=== PATIENT | female | born 1995 | race Caucasian/White ===

== ENCOUNTER 2021-03-17 14:12 | Emergency (ER) | payer OTHER ==
[2021-03-17 15:46] LABS: Urine Blood Negative (Negative); Urine Glucose Negative (Negative); Urine Protein Negative (Negative); Urine Specific Gravity 1.025 (1.005-1.030)
[2021-03-17 15:50] LABS: Basophils % 0.5 % (0-1.3); Hematocrit 39.6 % (36.0-45.0); Lymphocytes % 29.5 % (15.3-44.8); RBC Red Blood Cell Count 4.67 M/uL (3.86-4.86)
[2021-03-17 15:54] LABS: Protime INR 1.07
[2021-03-17 15:54] LABS: Urine Specific Gravity/Preg 1.025 (1.005-1.030)
[2021-03-17 16:08] LABS: Barbiturates NEGATIVE (NEGATIVE); Benzodiazepines NEGATIVE (NEGATIVE); Cocaine NEGATIVE (NEGATIVE); METHAMPHETAM NEGATIVE (NEGATIVE); Methadone NEGATIVE (NEGATIVE); Opiates NEGATIVE (NEGATIVE); Phencyclidine NEGATIVE (NEGATIVE); THC Cannibis NEGATIVE (NEGATIVE)
[2021-03-17 16:25] LABS: ALT/SGPT 25 U/L (12-78); AST/SGOT 16 U/L (15-37); Albumin 3.8 g/dL (3.4-5.0); Alkaline Phosphatase 99 U/L (45-117); BUN Blood Urea Nitrogen 11 mg/dL (7-18); Bicarbonate 26 mmol/L (21-32); Bilirubin Direct 0.3 mg/dL (0-0.2); Bilirubin Total 1.4 mg/dL (0.2-1.0); Glucose Level 79 mg/dL (74-106); Potassium 3.7 mmol/L (3.5-5.1); Protein, Total 8.4 g/dL (6.4-8.2); Sodium Level 138 mmol/L (136-145)
--- NOTE | 2021-03-17 17:43 | ER ---
Nurse's Notes [facility] Name: Beatriz Michel Age: 25 yrs Sex: Female : 1995 Arrival Date: 03/17/2021 Time: 14:15 Bed 19 Private MD: Diagnosis: Homicidal and suicidal ideations Presentation: 03/17 14:52 Chief complaint: Patient states: "I need to get resources for post depression. vg1 I've been having suicidal thoughts and thoughts of hurting the baby. My doctor, Dr. Monroe, suggested I come to the ER. I havnt acted on any suicidal thoughts or actually hurt the baby though." Pt denies having plan of SI or of hurting child. Coronavirus screen: Vaccine status: Patient reports receiving the 2nd dose of the covid vaccine. Client denies travel out of the [place] in the last 14 days. Ebola Screen: Patient negative for fever greater than or equal to 101.5 degrees Fahrenheit, and additional compatible Ebola Virus Disease symptoms. Initial Sepsis Screen: Does the patient meet any 2 criteria? No. Patient's initial sepsis screen is negative. Does the patient have a suspected source of infection? No. Patient's initial sepsis screen is negative. Risk Assessment: Do you want to hurt yourself or someone else? Patient reports desire/thoughts of hurting themselves or someone else. Provider notified. Onset of symptoms was February 2021. 14:52 Method Of Arrival: Ambulatory vg1 14:52 Acuity: GERARD 2 vg1 Triage Assessment: 14:56 General: Appears in no apparent distress. comfortable, Behavior is calm, cooperative. vg1 Pain: Denies pain. Neuro: Level of Consciousness is awake, alert, obeys commands, Oriented to person, place, time, situation. 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 - Social history:: Smoking status: Patient denies any tobacco usage or history of. Patient/guardian denies using alcohol, street drugs. Screenin:00 Abuse screen: Denies threats or abuse. Nutritional screening: No deficits noted. 2 Tuberculosis screening: No symptoms or risk factors identified. Fall Risk None identified. No fall in past 12 months (0 pts). No secondary diagnosis (0 pts). No IV (0 pts). Ambulatory Aid- None/Bed Rest/Nurse Assist (0 pts). Gait- Normal/Bed Rest/Wheelchair (0 pts) Mental Status- Oriented to own ability (0 pts). Total Holland Fall Scale indicates No Risk (0-24 pts). Assessment: 15:00 Reassessment: Patient belongings sent to security for safe keeping - Belongings check sl2 list placed on chart. General: Appears in no apparent distress. comfortable, well groomed, well developed, Behavior is calm, cooperative. 15:00 Pain: Denies pain. Neuro: No deficits noted. Level of Consciousness is awake, alert, sl2 obeys commands, Oriented to person, place, time, situation, Appropriate for age Radiology Scheduler are equal bilaterally Moves all extremities. Full function Gait is steady, Speech is normal, Facial symmetry appears normal. Cardiovascular: No deficits noted. Respiratory: No deficits noted. GI: No deficits noted. : No deficits noted. EENT: No deficits noted. Derm: No deficits noted. Derm: No deficits noted. 17:01 Reassessment: Arlet - [facility] Assembler Bicycle currently speaking with patient sl2 via Face time on I-pad for completion of psychiatric evaluation. Patient pleasant and cooperative and answering questions appropriately. 17:29 Reassessment: Psychiatric assessment of patient via I-pad Face Time, conducted by 2 Lashae Ross from [facility] has been completed. Lashae is currently speaking with JOHNNY Howell regarding findings and disposition. 18:35 Reassessment: Patient states she is breast feeding - and requesting a breast pump - [facility] labor and delivery department called and states they will sent a breast pump to the ER on loan to assist patient with breast feeding. 19:30 Reassessment: Change of shift nursing report given to FERMIN Barron. [facility] 19:45 Reassessment: Patient appears in no apparent distress at this time. Sitting on cc4 stretcher \\T\\ voices no complaints; VSS; voices no complaints;. General: Appears in no apparent distress. Behavior is calm, cooperative. Pain: Denies pain. Neuro: No deficits noted. Level of Consciousness is awake, alert, obeys commands, Oriented to person, place, time, situation. Respiratory: No deficits noted. Airway is patent Respiratory effort is even, unlabored. Musculoskeletal: No deficits noted. Capillary refill < 3 seconds, Range of motion: intact in all extremities. 22:00 Reassessment: Patient appears in no apparent distress at this time. Using breast pump cc4 with supervision by sitter; voices no complaints. 03/18 00:00 Reassessment: Patient appears in no apparent distress at this time. Dozing cc4 intermittently. 01:52 Reassessment: Patient appears in no apparent distress at this time. Reports discomfort cc4 of right AC saline lock with C. JENNA Barrett notified with okay to remove saline lock \\T\\ dc'd, annabelle. well; [facility] telephoned with nurse to nurse interview completed;. 02:15 Reassessment: Patient appears in no apparent distress at this time. [facility] cc4 telephoned with acceptance for admission with transfer paperwork being prepared; awake/alert/oriented/calm/cooperative; voices no complaints; pumping breast milk per self with supervision. 03:35 Reassessment: [facility] arrived \\T\\ transferring pt to [facility] via cc4 ground ambulance with patients belongings retrieved from security; NAD. Psych: 03/17 15:00 Cooks Suicide Severity Screening: "In the past month, have you actually had any sl2 thoughts of killing yourself?". Cooks Suicide Severity Screening: In the past month, have you wished you were or wished you could go to sleep and not wake up? Patient responds "No." "In the past month, have you actually had any thoughts of killing yourself?" Patient responds "yes." "In your lifetime, have you ever done anything, started to do anything, or prepared to do anything to end your life?" Patient responds "no.". 15:00 Subjective: Having thoughts of homicide. Denies plan. Homicidal thoughts directed sl2 towards Directed towards her self and her baby - states she has fleeting thoughts of hanging or shooting herself and fleeting thoughts of dropping or drowning her baby - but does not want to do these things so she is seeking help. Objective: Patient is cooperative, Speech is normal, Affect is appropriate, Patient has mutilated themselves by None - no evidence of self mutilation noted - patient denies. Interventions: Removed personal items and placed in bag. Patient placed in hospital gown. Searched person for dangerous items. Urine collected and sent for urine drug test. Belonging list filled out. Safety Checks: Personal items have been removed. Door is open. No visitors are present at this time. Pt denies substance abuse. Commitment: Patient will be a voluntary commitment. Vital Signs: 14:52 BP 120 / 92; Pulse 94; Resp 16; Temp 97.9; Pulse Ox 99% ; Weight 80.29 kg; Height 5 ft. vg1 3 in. (160.02 cm); Pain 0/10; 17:00 BP 122 / 78; Pulse 88; Resp 18; Temp 98.0; Pulse Ox 99% on R/A; sl2 19:45 BP 126 / 83; Pulse 101; Resp 18; Temp 98.4; Pulse Ox 96% on R/A; cc4 03/18 03:15 BP 125 / 76; Pulse 100; Resp 20; Temp 97.8; Pulse Ox 96% on R/A; cc4 03/17 14:52 Body Mass Index 31.35 (80.29 kg, 160.02 cm) vg1 ED Course: 03/17 14:15 Patient arrived in ED. mr 14:56 Triage completed. vg1 14:56 Arm band placed on. vg1 15:00 Patient has correct armband on for positive identification. Placed in gown. Bed in low sl2 position. Security at bedside. 15:00 No provider procedures requiring assistance completed. sl2 15:16 Ramana Barrett PA is PHCP. cp 15:16 Maggie Arroyo MD is Attending Physician. cp 15:19 Sheila Weldon, FERMIN is Primary Nurse. sl2 15:49 Inserted saline lock: 20 gauge in right antecubital area, using aseptic technique. dh4 Blood collected. 16:36 contacted [facility] to have screener evaluate pt. bd 17:47 faxed chart to [facility]. bd 19:22 IV is patent, is intact, with fluids infusing freely, with fluids not infusing freely. sl2 03/18 00:33 Faxed pt chart to [facility] and [address] in regards to initiating transfer. 03:35 Patient did not have IV access during this emergency room visit. cc4 Administered Medications: No medications were administered Outcome: 03/17 17:43 ER care complete, transfer ordered by MD. carvalho 03/18 03:35 Transferred by ground EMS Note: [facility] Condition: stable Instructed on the need for transfer, Demonstrated understanding of instructions. 03:38 Patient left the ED. cc4 Signatures: Karen Mc Mary mr Page, Ramana, PA PA Rocco Donald 4 Jessica Abdullahi, RN RN vg1 Junior Ferris 3 Jael Damon, RN RN cc4 Sheila Weldon RN RN sl2
--- NOTE | 2021-03-17 17:43 | EDPHYS ---
Physician Documentation [facility] Name: Beatriz Michel Age: 25 yrs Sex: Female : 1995 Arrival Date: 03/17/2021 Time: 14:15 Bed 19 Private MD: ED Physician Maggie Arroyo HPI: 03/17 15:35 This 25 yrs old Female presents to ER via Ambulatory with complaints of cp Depression. 15:35 The patient presents to the emergency department with depression, due to recent cp delivery of pre-term infant. Onset: The symptoms/episode began/occurred 1 month(s) ago. 15:35 Past psychiatric history: Prior diagnosis: no previous psychiatric diagnosis known, cp Psychiatric medications include: none, the patient has not had a prior suicide gesture, the patient does not have a previous inpatient psychiatric history. Patient is who delivered pre-term healthy infant approximately 5 months ago by section due to complications. Patient reports over the past month she has had increasing thoughts to harm herself and the with these thoughts increasing over the past week. Patient reports she was referred to ED by DR Michele for evaluation. 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 - Social history:: Smoking status: Patient denies any tobacco usage or history of. Patient/guardian denies using alcohol, street drugs. ROS: 15:40 Constitutional: Negative for body aches, chills, fever, poor PO intake. cp 15:40 Eyes: Negative for injury, pain, redness, and discharge. cp 15:40 ENT: Negative for ear pain, sore throat, difficulty swallowing, difficulty handling secretions. 15:40 Cardiovascular: Negative for chest pain, edema, palpitations. 15:40 Respiratory: Negative for cough, shortness of breath, wheezing. 15:40 Abdomen/GI: Negative for abdominal pain, nausea, vomiting, and diarrhea, constipation. 15:40 Back: Negative for pain at rest, pain with movement. 15:40 Neuro: Negative for altered mental status, dizziness, headache, weakness. 15:40 Psych: Positive for homicidal ideation, suicidal ideation, Negative for auditory hallucinations, visual hallucinations. 15:40 All other systems are negative. Exam: 15:45 Constitutional: The patient appears in no acute distress, alert, awake, cp non-diaphoretic, non-toxic, well developed, well nourished. 15:45 Head/Face: Normocephalic, atraumatic. cp 15:45 Eyes: Periorbital structures: appear normal, Conjunctiva: normal, no exudate, no injection, Sclera: no appreciated abnormality, Lids and lashes: appear normal, bilaterally. 15:45 ENT: External ear(s): are unremarkable, Nose: is normal, Mouth: Lips: moist, Oral mucosa: moist, Posterior pharynx: Airway: no evidence of obstruction, patent. 15:45 Neck: ROM/movement: is normal, is supple, without pain, no range of motions limitations. 15:45 Chest/axilla: Inspection: normal. 15:45 Cardiovascular: Rate: normal, Rhythm: regular, Edema: is not appreciated, JVD: is not appreciated. 15:45 Respiratory: the patient does not display signs of respiratory distress, Respirations: normal, no use of accessory muscles, no retractions, labored breathing, is not present, Breath sounds: are clear throughout, no decreased breath sounds, no stridor, no wheezing. 15:45 Abdomen/GI: Exam negative for discomfort, distension, guarding, Inspection: abdomen appears normal. 15:45 Neuro: Orientation: to person, place \\T\\ time. Mentation: is normal, Motor: moves all fours, strength is normal, Sensation: is normal. 22:05 ECG was reviewed by the Attending Physician. cp Vital Signs: 14:52 BP 120 / 92; Pulse 94; Resp 16; Temp 97.9; Pulse Ox 99% ; Weight 80.29 kg; Height 5 ft. vg1 3 in. (160.02 cm); Pain 0/10; 17:00 BP 122 / 78; Pulse 88; Resp 18; Temp 98.0; Pulse Ox 99% on R/A; sl2 19:45 BP 126 / 83; Pulse 101; Resp 18; Temp 98.4; Pulse Ox 96% on R/A; cc4 11 03:15 BP 125 / 76; Pulse 100; Resp 20; Temp 97.8; Pulse Ox 96% on R/A; cc4 03/17 14:52 Body Mass Index 31.35 (80.29 kg, 160.02 cm) vg1 MDM: 03/17 15:44 Patient medically screened. 19:00 Data reviewed: vital signs, nurses notes, lab test result(s), EKG. 19:00 Test interpretation: by ED physician or midlevel provider: ECG. 03/18 02:00 Physician consultation: was contacted at 01:55, regarding regarding transfer, to a [facility]. accepting physician will be DR Campuzano with [facility]. 03/17 15:16 Order name: Acetaminophen; Complete Time: 16:51 03/17 16:51 Interpretation: ACETA < 2.0; Reviewed. 03/17 15:16 Order name: Basic Metabolic Panel; Complete Time: 16:51 03/17 16:52 Interpretation: Reviewed. 03/17 15:16 Order name: CBC with Diff; Complete Time: 16:23 03/17 16:24 Interpretation: Reviewed. 03/17 15:16 Order name: ETOH Level; Complete Time: 16:51 03/17 21:06 Interpretation: Reviewed. 03/17 15:16 Order name: Hepatic Function; Complete Time: 16:51 03/17 16:51 Interpretation: Normal except: BILIT 1.4; BILID 0.3; TP 8.4; GLOB 4.6; A/G 0.8. 03/17 15:16 Order name: PT-INR; Complete Time: 16:23 03/17 15:16 Order name: Ptt, Activated; Complete Time: 16:23 03/17 15:16 Order name: Salicylate; Complete Time: 16:51 03/17 15:16 Order name: Urine Drug Screen; Complete Time: 16:23 03/17 16:52 Interpretation: Reviewed. 03/17 15:46 Order name: Urine Dipstick-Ancillary; Complete Time: 16:23 EDMS 03/17 21:07 Interpretation: Reviewed. 03/17 15:46 Order name: Urine --Ancillary (enter results); Complete Time: 16:23 bd 03/17 16:28 Order name: COVID-19 (Coronavirus) Document "Date of Onset" if Symptomatic 03/17 18:10 Order name: SARS-COV-2 RT PCR; Complete Time: 21:06 EDMS 03/17 21:06 Interpretation: Results reviewed. 03/17 15:16 Order name: EKG - Nurse/Tech; Complete Time: 15:48 cp 03/17 15:16 Order name: IV Saline Lock; Complete Time: 15:48 cp 03/17 15:16 Order name: Labs collected and sent; Complete Time: 15:48 cp 03/17 15:16 Order name: Suicide Precautions; Complete Time: 15:48 cp 03/17 15:16 Order name: Suicide Screening ([place]); Complete Time: 16:30 cp 03/17 15:16 Order name: Urine Dipstick-Ancillary (obtain specimen); Complete Time: 15:48 cp 03/17 15:16 Order name: Urine Test (obtain specimen); Complete Time: 15:48 03/17 17:49 Order name: Diet Regular; Complete Time: 17:49 [facility] 03/18 01:52 Order name: Discontinue IV; Complete Time: 01:52 cc4 EC/10 22:05 Rate is 97 beats/min. Rhythm is regular. MS interval is normal. QRS interval is normal. cp QT interval is normal. T waves are Inverted in lead aVR. Interpreted by me. Reviewed by me. Administered Medications: No medications were administered Disposition Summary: 03/17/21 17:43 Transfer Ordered Transfer Location: [facility] Facility cp Reason: Higher level of care cp Condition: Stable cp Problem: new cp Symptoms: are unchanged cp Accepting Physician: DR Campuzano(03/18/21 03:38) cc4 Diagnosis - Homicidal and suicidal ideations cp Forms: - Medication Reconciliation Form cp - SBAR form cp Addendum: 03/22/2021 05:30 Co-signature as Attending Physician, Maggie Arroyo MD PA/PEST CONTROL SERVICE TECHNICIAN's history reviewed, m a2 patient interviewed, and examined. I agree with assessment and care plan and confirm the diagnosis (es) above. Signatures: Dispatcher [employer] EDMS Ramana Barrett PA PA cp Alzahri, Mohammad, MD MD ma2 Jessica Abdullahi RN RN vg1 Jael Damon RN RN cc4 Corrections: (The following items were deleted from the chart) 03/17 18:09 16:29 CORONAVIRUS ordered. EDMS EDMS 03/18 02:20 03/17 17:43 Doctor deven cp 03/18 03:38 02:20 DR Justen carvalho cc4
[2021-03-18 03:49] VITALS: O2SAT 96
[2021-03-18 03:51] VITALS: BP 125/76; TEMP 97.8
--- NOTE | 2021-03-19 20:41 | EKG ---
Test Date: 2021-03-17 Test Time: 21:57:18 Aircraft Painter: VIOLET MEASUREMENT RESULTS: Intervals: Rate: 97 [place]: 156 QRSD: 74 QT: 334 QTc: 424 [place]: P: 38 [place]: 156 QRS: 12 T: 33 INTERPRETIVE STATEMENTS: Normal sinus rhythm Normal ECG No previous ECG available for comparison Electronically Signed On 03-19-21 20:35:34 TELEPHONE SERVICE REPRESENTATIVE by Jeffry Ramirez
== END 2021-03-18 03:38 ==
LOC: ER 14:12
DX: R45.851 Suicidal ideations (principal); R45.850 Homicidal ideations; Z20.822 Contact with and (suspected) exposure to COVID-19
CPT/HCPCS: 93005; 85025; 80048; 36415; 80320; 80329 ×2; 81025; 85610; 80076; 85730; 81003; 80307; 99285; U0003